=== PATIENT | female | born 1950 | race Caucasian/White ===

== ENCOUNTER 2021-12-03 11:59 | Outpatient (CLI) | payer MEDICARE, SELFPAY | END 2021-12-03 12:00 | disposition home or self-care (01) | LOC: LKVREF 12-09 10:59 | PROVIDERS: PCP Physician Assistant Medical; Visit Provider Emergency Medicine | DX: N76.0 Acute vaginitis (principal); Z11.3 Encounter for screening for infections with a predominantly sexual mode of transmission | CPT/HCPCS: 87491; 87591 ==

== ENCOUNTER 2024-05-04 09:17 | Outpatient (CLI) | payer MEDICARE, SELFPAY | END 2024-05-04 09:18 | disposition home or self-care (01) | PROVIDERS: PCP Physician Assistant Medical; Visit Provider Physician Assistant Medical | DX: Z13.228 Encounter for screening for other metabolic disorders (principal); Z13.220 Encounter for screening for lipoid disorders | CPT/HCPCS: 80053; 80061 ==